=== PATIENT | female | born 1990 | race Caucasian/White ===

== ENCOUNTER 2017-02-24 16:10 | Emergency (ER) | payer OTHER ==
[~2017-02-24] VITALS: Ht 160 cm; Wt 59.4 kg
[2017-02-24 16:23] VITALS: BP 107/72
== END 2017-02-24 19:06 | disposition home or self-care (01) ==
LOC: ED 16:10
DX: R11.10 Vomiting, unspecified (principal); R19.7 Diarrhea, unspecified; Z90.49 Acquired absence of other specified parts of digestive tract